=== PATIENT | male | born 1955 | race Caucasian/White ===

== ENCOUNTER 2016-09-10 05:24 | Emergency (ER) | payer BC ==
--- NOTE | 2016-09-13 20:34 | ER ---
ADMIT: 09/10/2016 RM/LOC: ER [facility] MR#: [id number] [address] [address] [place] [address] [place] [address] Emergency Room Report SEX: M AGE: 61 : 1955 DATE: 09/10/2016 The patient is a 61-year-old male [place], complained of increased swelling lips, left hand. Denies any respiratory distress or previous history of angioedema. Exam remarkable for nontoxic, afebrile male with slight left hand swelling without erythema, warmth, or ascending lymphangitis. No angioedema mouth or lips noted. Breath sounds were equal. Treated with Depo-Medrol 80 mg IM, prednisone 40 mg taper over 12 days, start today, continue Benadryl, follow up Dr. Garcia as needed. Rajat Muro MD/ anabel JOB #: [id number] CC: Rajat Muro MD, Attending Physician Mayela Garcia MD, Family Physician Mayela Garcia MD
== END 2016-09-10 06:30 | disposition home or self-care (01) ==
LOC: ER 05:24
DX: S60.562A Insect bite (nonvenomous) of left hand, initial encounter (principal); S00.561A Insect bite (nonvenomous) of lip, initial encounter; F17.210 Nicotine dependence, cigarettes, uncomplicated; Z90.49 Acquired absence of other specified parts of digestive tract; W57.XXXA Bitten or stung by nonvenomous insect and other nonvenomous arthropods, initial encounter; Y92.89 Other specified places as the place of occurrence of the external cause